=== PATIENT | male | born 1990 | race Caucasian/White ===

== ENCOUNTER 2019-10-05 08:21 | Emergency (ER) | payer BC, SELFPAY ==
--- NOTE | 2019-10-05 08:35 | ED.GENADULT ---
HPI - General Adult General Chief complaint: Upper Respiratory Infection Stated complaint: Cough/Congestion Time Seen by Provider: 10/05/19 08:58 Source: patient Mode of arrival: ambulatory Limitations: no limitations History of Present Illness HPI narrative: 29-year-old male patient presents to the [facility] with complaints of cold symptoms that started abruptly last night. Patient states he started off with a cough and then he started running a fever as high as 101 last night. Patient states he does have a headache and just overall body aches. Patient states that he has been taking Tylenol for his symptoms and his last dose was about an hour prior to arrival. Patient denies getting a flu shot this year. Patient denies being a smoker. Patient denies any chest pain but states he does have little shortness of breath when he coughs. Denies any ear pain. States his nose is a little stuffy but denies any runny nose denies a sore throat. Denies any abdominal pain, nausea, vomiting or diarrhea. Related Data Home Medications Medication Instructions Recorded Confirmed No Home Medications 10/05/19 10/05/19 Allergies Allergy/AdvReac Type Severity Reaction Status Date / Time No Known Allergies Allergy Unknown Verified 10/05/19 08:54 Review of Systems Review of Systems: Narrative: CONSTITUTIONAL: Positive fever, chills, body aches and sweats. EYES: Denies visual changes, redness, or discharge. ENT: Positive rhinorrhea, congestion, denies sore throat, or otalgia. CARDIOVASCULAR: Denies chest pain, palpitations, or edema. RESPIRATORY: Positive cough with dyspnea at times. GASTROINTESTINAL: Denies abdominal pain, nausea, vomiting, or diarrhea. GENITOURINARY: Denies dysuria or hematuria. SKIN: Denies rash or itching. MUSCULOSKELETAL: Denies back pain, joint pain, or myalgia. NEUROLOGIC: Positive headache, denies numbness, or weakness. PSYCHIATRIC: Denies anxiety or depression. [facility] Family History Family History Father Family history of elevated blood lipids Other Diabetes mellitus Family history of malignant neoplasm Hypertension Social History Social History Smoking status: Former smoker Smoking end date: 09/03/07 Alcohol intake: current Comments At the time of my signature I agree with nursing past medical history, surgical, social, and family history. There is no relevant family history pertinent to the presenting complaint. Exam Narrative: Exam Narrative: GENERAL: Well-appearing, well-nourished, and in no acute distress. HEAD: Normocephalic, atraumatic. No tenderness noted to frontal maxillary sinuses on palpation EYES: PERRLA and EOMI. ENT: Nares with erythema and edema noted bilaterally, no rhinorrhea or epistaxis. Mucous membranes moist. Posterior pharynx with no erythema, tonsillar margin, exudates or lesions present. Bilateral TMs are clear with no erythema or foreign bodies in the canal. NECK: Supple. No lymphadenopathy CHEST: Clear to auscultation. No respiratory distress. HEART: Regular rate and rhythm. No murmur heard. Normal peripheral pulses. ABDOMEN: Soft, nontender, nondistended, normal active bowel sounds. EXTREMITIES: Normal range of motion. No edema. SKIN: Warm, dry, no rash. NEURO: No focal deficits. Alert and oriented x3. Course Reevaluation(s) Reevaluation #1: Notify patient that his influenza test today is negative. Discussed with him that this is most likely a virus and will take anywhere from 5 to 2 weeks to run its course. Discussed with patient he can continue Tylenol and ibuprofen for fevers and headaches and body aches. Discussed with patient he can also take [id number] cold and flu medication to help with relief of some of his symptoms. Discussed with him I did go ahead and write him off of work tomorrow in case he is still running fevers. Patient verbalize
[2019-10-05 08:38] VITALS: BP 141/81; PULSE 103; RESP 16; TEMP 37.7; O2SAT 99
== END 2019-10-05 09:09 | disposition home or self-care (01) ==
PROVIDERS: Emergency Provider Nurse Practitioner Family; PCP Internal Medicine
DX: J06.9 Acute upper respiratory infection, unspecified (principal); R50.9 Fever, unspecified
CPT/HCPCS: 87804; 99212; G0463

== ENCOUNTER 2019-10-06 13:46 | Outpatient (CLI) | payer BC, SELFPAY ==
--- NOTE | ~2019-10-06 | XR_ITS ---
EXAMINATION: XR chest 2V DATE: 10/06/2019 14:20 INDICATION: Cough and fever. TECHNIQUE: Frontal and lateral views of the chest were obtained. COMPARISON: Chest 2 views 07/18/2012 FINDINGS: The chest demonstrates clear lungs without pneumonia, pleural effusion, or pneumothorax. Th e heart size is normal. Surgical clips in the right upper quadrant are likely from cholecystectomy. IMPRESSION: 1. No acute cardiopulmonary disease. Reviewed, dictated and finalized at location A. [facility] [employer] [employer]
[2019-10-06 14:15] LABS: Hemoglobin 15.5 g/dL (14.0-18.0); Immature Platelet Fraction Pct 2.2 % (1.0-7.0); Mean Corpuscular Hemoglobin 28.7 pg (27.0-31.0); Mean Platelet Volume 10.1 fl (8.7-11.0); Platelet Count Result 134 K/mm3 (150-420); Red Cell Distribution Width 12.9 % (11.6-14.4); White Blood Count 3.5 K/mm3 (4.8-10.8)
[2019-10-06 15:20] LABS: Band Neutrophils Percent 0 % (0-6); Basophils Percent Manual 0 % (0-1); Eosinophils Absolute Manual 0.03 K/mm3 (0.02-0.5); Eosinophils Percent Manual 1 % (1-6); Lymphocytes Absolute Manual 1.05 K/mm3 (1.1-4.5); Lymphocytes Percent Manual 30 % (18-44); Monocytes Absolute Manual 0.73 K/mm3 (0.1-0.90); Monocytes Percent Manual 21 % (3-9); Neutrophils Absolute Manual 1.68 K/mm3 (1.3-6.7); Neutrophils Percent Manual 48 % (46-73); Platelet Estimate Adequate (Adequate); Total Cells Counted 100
== END 2019-10-06 13:47 | disposition home or self-care (01) ==
PROVIDERS: PCP Internal Medicine; Visit Provider Internal Medicine
DX: R50.9 Fever, unspecified (principal); R05 Cough
CPT/HCPCS: 36415; 71046; 85025; 85055

== ENCOUNTER 2020-06-04 19:52 | Emergency (ER) | payer BC, SELFPAY ==
[2020-06-04 20:03] VITALS: BP 124/92; PULSE 77; RESP 14; TEMP 36.6; O2SAT 95
--- NOTE | 2020-06-04 20:04 | ED.WOUNDLAC ---
HPI - Wound/Laceration General Chief Complaint: Wound/Laceration Stated Complaint: cut finger Time Seen by Provider: 06/04/20 20:04 Source: patient Mode of arrival: ambulatory Limitations: no limitations History of Present Illness HPI narrative: 30-year-old man comes in today complaining of laceration on the tip of his left thumb. Patient states that he cut himself with a saw while cutting branches. It happened approximately 10 hours ago. He does not recall his last tetanus shot. Onset (ago): hour(s) (10) Extremity Location: Left: hand Place: outdoors Patient tetanus UTD: No Context: accidental Associated symptoms: pain and other ( Persistent bleeding) Related Data Home Medications Medication Instructions Recorded Confirmed No Home Medications 10/05/19 06/04/20 Allergies Allergy/AdvReac Type Severity Reaction Status Date / Time No Known Allergies Allergy Unknown Verified 10/05/19 08:54 Review of Systems Cardiovascular: Cardiovascular: Denies chest pain Respiratory: Respiratory: Denies cough and Denies dyspnea Integumentary/Breasts: Skin/Breast: Denies pruritus, Denies erythema and Denies rash Neurologic: Denies focal weakness and Denies numbness Hematologic/Lymphatic: Hematologic/Lymphatic: Denies easy bleeding and Denies easy bruising PMFSH Social History Social History Smoking status: Former smoker Smoking end date: 09/03/07 Alcohol intake: current Exam Const: General: healthy appearing, no acute distress and alert Orientation/consciousness: patient oriented x3 Limitations: no limitations HENMT: Face and sinus: normal facial exam Eyes: Conjunctivae: conjunctivae normal Pupils: Equal, round and reactive pupils present EOM: EOMs intact bilaterally Resp: Effort & Inspection: normal respiratory effort and not labored Auscultation: clear to auscultation bilaterally, no rales, no rhonchi and no wheezes Cardio: Rate: regular rate Rhythm: regular rhythm Heart sounds: no murmurs Skin: General skin exam: normal color, no jaundice and no pallor Rashes: no rashes Other: 7 cm flap laceration on the ulnar aspect of the tip of the left thumb. Neuro: General: moves all extremities, no focal motor deficits and CN's II-XI intact bilaterally Speech: normal speech Extrem: General: normal to inspection and no clubbing, cyanosis or edema Psych: Appearance: grossly normal and well kempt Mental Status: mental status grossly normal Affect: normal affect Attitude: cooperative Thought content: Yes Normal thought content present Course Vital Signs Vital signs: Vital Signs Temperature 36.6 C 06/04/20 20:03 Pulse Rate 77 06/04/20 20:03 Respiratory Rate 14 06/04/20 20:03 Blood Pressure 124/92 H 06/04/20 20:03 Pulse Oximetry 95 06/04/20 20:03 Temperature 36.6 C 06/04/20 20:03 Pulse Rate 77 06/04/20 20:03 Respiratory Rate 14 06/04/20 20:03 Blood Pressure 124/92 H 06/04/20 20:03 Pulse Oximetry 95 06/04/20 20:03 Procedures Laceration Laceration 1: Date: 06/04/20 Time: 20:45 Site: hand Side (If applicable): left Size (cm): 0.7 Description: flap Depth: simple, single layer Local Anesthetic: lidocaine 1% Amount of anesthesia used (mL): 1 Pre-repair: wound explored and irrigated extensively ====== Skin Level ====== Skin layer closed with: nylon Size (cm): 5-0 Number of sutures: 1 Technique: simple, interrupted ====== Subcutaneous Layer ====== ====== Muscle Layer ====== ====== Tendon Layer ====== Discharge Plan Discharge Clinical Impression: Laceration Patient Disposition: Home, Self-Care Condition: Stable Instructions: Care For Your Stitches (ED) Additional Instructions: 1 suture to come out in 8-10 days. If you develop redness, swelling, red or green drainage, or ne
[2020-06-04] MEDS: LIDOCAINE HCL 1% LOCAL INJ 20 ML VIAL 10 ML INFILTRATE (20:52)
[2020-06-04] MEDS: TETANUS,DIPHTHERIA,AC PERTUSSIS ADULT 0.5 ML (ADACEL) IM (21:06)
[2020-06-04] MEDS: NEOMYCIN/POLYMYXIN/BACITRACIN OINTMENT PACKET 1 PACKET (21:10)
[2020-06-04 21:16] VITALS: RESP 15; O2SAT 100
== END 2020-06-04 21:15 | disposition home or self-care (01) ==
PROVIDERS: Emergency Provider Emergency Medicine; PCP Internal Medicine
DX: S61.012A Laceration without foreign body of left thumb without damage to nail, initial encounter (principal); W27.8XXA Contact with other nonpowered hand tool, initial encounter
CPT/HCPCS: 12001; 90471; 90715; 99282

== ENCOUNTER 2020-08-16 11:22 | Outpatient (CLI) | payer BC, SELFPAY ==
[2020-08-16 12:25] LABS: SARS-CoV-2 Ag Negative (Negative)
== END 2020-08-16 11:23 | disposition home or self-care (01) ==
LOC: CHSLAB 11:23
PROVIDERS: PCP Internal Medicine; Visit Provider Internal Medicine
DX: Z20.828 Contact with and (suspected) exposure to other viral communicable diseases (principal)
CPT/HCPCS: 87426

== ENCOUNTER 2020-08-20 15:23 | Outpatient (CLI) | payer BC, SELFPAY ==
[2020-08-20 16:33] LABS: SARS-CoV-2 Ag Negative (Negative)
== END 2020-08-20 15:24 | disposition home or self-care (01) ==
LOC: CHSLAB 15:26
PROVIDERS: PCP Internal Medicine; Visit Provider Internal Medicine
DX: Z20.828 Contact with and (suspected) exposure to other viral communicable diseases (principal)
CPT/HCPCS: 87426

== ENCOUNTER 2023-01-04 08:38 | Emergency (ER) | payer OTHER, BC, SELFPAY ==
--- NOTE | ~2023-01-04 | CT_ITS ---
EXAMINATION: CT brain wo con DATE: 01/04/2023 09:20 INDICATION: Head injury. Headache. TECHNIQUE: Computed tomography (CT) of the head was performed without intravenous contrast. The mA wa s adjusted according to patient size. Iterative reconstruction technique was employed. The dose-lengt h product was 681.00 mGy-cm. COMPARISON: Head CT 07/14/2011 FINDINGS: There is no intracranial hemorrhage, acute infarction, or abnormal intracranial mass lesion . The ventricles are normal in size. The orbits are normal. There is a mucous retention cyst in left maxillary sinus. The mastoid air cells are normal. IMPRESSION: 1. Normal brain. Reviewed, dictated and finalized at location A. IMPRESSION: 1. Normal brain.
--- NOTE | ~2023-01-04 | CT_ITS ---
EXAMINATION: CT cervical spine wo con DATE: 01/04/2023 09:21 INDICATION: Head injury. Neck pain. TECHNIQUE: Computed tomography (CT) of the cervical spine was performed without intravenous contrast. Automated exposure control and iterative reconstruction technique were employed. The dose-length pro duct was 681.00 mGy-cm. COMPARISON: Cervical spine MRI 12/25/2015 FINDINGS: There is 4 degrees dextrocurvature of cervical spine. Vertebral body heights and interverte bral disc heights are normal. The following disc levels are specifically discussed: C2-C3: There is mild bilateral uncovertebral joint osteoarthritis. There is mild left facet joint ost eoarthritis. There is no neural foraminal stenosis. There is no central canal stenosis. C3-C4: There is mild bilateral uncovertebral joint osteoarthritis. There is no facet joint osteoarthr itis. There is no neural foraminal stenosis. There is no central canal stenosis. C4-C5: There is mild bilateral uncovertebral joint osteoarthritis. There is no facet joint osteoarthr itis. There is no neural foraminal stenosis. There is no central canal stenosis. C5-C6: There is no uncovertebral joint osteoarthritis. There is no facet joint osteoarthritis. There is no neural foraminal stenosis. There is no central canal stenosis. C6-C7: There is no uncovertebral joint osteoarthritis. There is no facet joint osteoarthritis. There is no neural foraminal stenosis. There is no central canal stenosis. C7-T1: There is no uncovertebral joint osteoarthritis. There is mild bilateral facet joint osteoarthr itis. There is no neural foraminal stenosis. There is no central canal stenosis. IMPRESSION: 1. No fracture. Reviewed, dictated and finalized at location A. IMPRESSION: 1. No fracture.
[2023-01-04 08:38] VITALS: BP 141/100; PULSE 74; RESP 16; TEMP 36.7; O2SAT 96
[2023-01-04] MEDS: KETOROLAC (*BKC) 60 MG/2 ML VIAL IM (09:19)
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
[2023-01-04 10:18] VITALS: BP 143/99; PULSE 66; RESP 16; TEMP 36.7; O2SAT 100
== END 2023-01-04 10:22 | disposition home or self-care (01) ==
PROVIDERS: Emergency Provider Emergency Medicine; PCP Internal Medicine
DX: S06.0X0A Concussion without loss of consciousness, initial encounter (principal); S16.1XXA Strain of muscle, fascia and tendon at neck level, initial encounter; Z87.891 Personal history of nicotine dependence; V87.7XXA Person injured in collision between other specified motor vehicles (traffic), initial encounter
CPT/HCPCS: 70450; 72125; 96372; 99284; J1885

== ENCOUNTER 2023-01-12 11:44 | Outpatient (CLI) | payer OTHER, SELFPAY ==
--- NOTE | ~2023-01-12 | XR_ITS ---
XR lumbar spine 2-3V 01/12/2023 12:10 Indication: Low back pain Procedure: 3 views lumbar spine Comparison: No prior studies for comparison. Findings: There is mild levocurvature of the lumbar spine. Vertebral body heights are maintained. The re is mild wedge-shaped appearance to L1, likely developmental or chronic. No acute fracture, subluxa tion or dislocation. No evidence for spondylolisthesis. Pedicles intact. Sacral foramen are symmetric . Impression: 1: No acute abnormality of the lumbar spine. Reviewed, dictated and finalized at location B. Impression: 1: No acute abnormality of the lumbar spine.
== END 2023-01-12 11:45 | disposition home or self-care (01) ==
LOC: CHSIMG 11:46
PROVIDERS: PCP Internal Medicine; Visit Provider Nurse Practitioner Family
DX: M54.50 Low back pain, unspecified (principal)
CPT/HCPCS: 72100

== ENCOUNTER 2023-01-31 08:01 | Outpatient (RCR) | payer BC, SELFPAY ==
--- NOTE | 2023-01-31 08:16 | OPREHPOC ---
Outpatient Therapy Plan of Care This is a Multidisciplinary Plan of Care that may contain components documented by all disciplines (PT, OT, and ST.) PT Problem 1 PT Problem #1 Knowledge Deficit PT Goal 1 Goal Patient to demonstrate independence with HEP Target Visit 12 PT Problem 2 PT Problem #2 Pain PT Goal 1 Goal 1. Patient to report highest pain at 2/10 2. Patient to report ability to sleep with no disturbance due to neck pain Target Visit 12 PT Problem 3 PT Problem #3 Impaired Functional Mobil PT Goal 1 Goal 1. Patient to report ability to sit at work for >1 hour with no increase in pain 2. Patient to demonstrate ability to reach to the ground with lumbar flexion to improve ability to lift for house hold tasks Target Visit 12 PT Problem 4 PT Problem #4 Impaired Strength PT Goal 1 Goal 1. Patient to demonstrate 5/5 strength of B LE to improve ability to complete house hold tasks at PLOF. Target Visit 12
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
--- NOTE | 2023-04-03 07:12 | OPREHPOC ---
Outpatient Therapy Plan of Care This is a Multidisciplinary Plan of Care that may contain components documented by all disciplines (PT, OT, and ST.) PT Problem 1 PT Problem #1 Knowledge Deficit PT Goal 1 Goal Patient to demonstrate independence with HEP Target Visit 12 Comment continue PT Problem 2 PT Problem #2 Pain PT Goal 1 Goal 1. Patient to report highest pain at 2/10 2. Patient to report ability to sleep with no disturbance due to neck pain Target Visit 12 Comment continue PT Problem 3 PT Problem #3 Impaired Functional Mobil PT Goal 1 Goal 1. Patient to report ability to sit at work for >1 hour with no increase in pain 2. Patient to demonstrate ability to reach to the ground with lumbar flexion to improve ability to lift for house hold tasks Target Visit 12 Comment continue PT Problem 4 PT Problem #4 Impaired Strength PT Goal 1 Goal 1. Patient to demonstrate 5/5 strength of B LE to improve ability to complete house hold tasks at PLOF. Target Visit 12 Progress Met Comment MET
--- NOTE | 2023-04-03 07:12 | PTOPPROGNS ---
Assessment and note entered by Nicole Gomes DPT Evaluation Information Assessment Status Progress Diagnosis neck pain, back pain Onset 01/04/23 Subjective Information Patient reports back pain is improved since starting PT. He reports cervical pain is his biggest complaint now but also reports that is improved. He reports he can sleep with less disturbance. He reports pain with sitting at his desk. Assessment PT Clinical Summary Patient has been seen for 10 visits of skilled PT with good progress towards goals. Patient demonstrates improved cervical ROM, decrease back pain and met his goal for LE strength. Patient reports improved ability to sleep at night but continues to have cervica pain with sitting for long periods of time. Patient would benefit from continued skilled PT to address remaining impairments and return to PLOF. Plan of Care Interventions Electrical Stimulation,Gait Training,Hot Pack/Cold Pack,Intermittent Compression,Manual Therapy, Mechanical Traction,Neuro Re-education,Patient/ Caregiver Educati,Therapeutic Activities, Therapeutic Exercise,Self-Care/Home Management PT Services Indicated Yes Treatment Frequency and continue with current POC Duration These treatments will address the objective and functional deficits as defined above. The patient will be advanced safely and appropriately in order for the patient to progress towards his/her prior level of function. Additional exercises will be introduced and as well as a comprehensive home exercise program upon discharge, if needed, ?to ensure carryover of functional gains achieved in the clinic. This treatment plan has been reviewed and agreement upon by the patient.
--- NOTE | 2023-05-04 09:55 | PCPTNOTE ---
Patient discharged after 10 visits due to not attending follow up appointments
== END 2023-04-02 23:59 | disposition home or self-care (01) ==
LOC: CHSPT 08:01
PROVIDERS: PCP Internal Medicine; Visit Provider Nurse Practitioner Family
DX: M54.2 Cervicalgia (principal); M54.50 Low back pain, unspecified
CPT/HCPCS: 97014; 97110; 97140; 97150; 97161; G0283

== ENCOUNTER 2023-05-16 20:13 | Emergency (ER) | payer BC, SELFPAY ==
--- NOTE | 2023-05-16 20:28 | ED.LOWEXIN ---
HPI - Extremity Injury (Lower) General Chief Complaint: Extremity Injury, Lower Stated Complaint: R arellano Injury Time Seen by Provider: 05/16/23 20:15 Source: patient Mode of arrival: ambulatory Limitations: no limitations History of Present Illness HPI Narrative: 32-year-old male with a history of depression was hit by a softball on the right lower arellano. No other injuries noted. The patient is ambulatory. -- Bruising of the right lower leg. complaint: leg injury Onset (ago): hour(s) ( 1 hour ago) Injury: Left: hip, pelvis, thigh, knee, ankle, foot and toes Type of Injury: blunt Place: street/outdoors Severity: mild Exacerbating factors: nothing Context: direct blow Other symptoms: none Related Data Home Medications Medication Instructions Recorded Confirmed escitalopram oxalate 10 mg tablet 10 mg PO DAILY 01/04/23 05/16/23 hydroxyzine HCl 25 mg tablet 25 mg PO HS 01/04/23 05/16/23 sertraline 100 mg tablet 100 mg PO DAILY 01/04/23 05/16/23 Allergies Allergy/AdvReac Type Severity Reaction Status Date / Time No Known Allergies Allergy Unknown Verified 10/05/19 08:54 Review of Systems Review of Systems: All systems reviewed & are unremarkable except as noted in HPI and below PMFSH Past Medical History Medical History (Updated 05/16/23 @ 20:50 by Kingsley Fuentes MD) Depression Patient denies medical problems Family History Family History Father Family history of elevated blood lipids Other Diabetes mellitus Family history of malignant neoplasm Hypertension Social History Social History Smoking status: Former smoker Smoking end date: 09/03/07 Alcohol intake: current Exam Const: General: healthy appearing Nutritional Appearance: well nourished Orientation/consciousness: patient oriented x3 Limitations: no limitations HENMT: Head: normal to inspection Ears: external ears normal Face/Nose/Sinus: Normal external nose present Face and sinus: normal facial exam Mouth: Yes Normal oral and palatal mucosa present Throat: posterior oropharynx normal Eyes: Conjunctivae: conjunctivae normal Pupils: Equal, round and reactive pupils present EOM: EOMs intact bilaterally Direct Ophthalmoscopy: no photophobia Neck: Neck: normal visual inspection Chest: Chest palpation & inspection: normal inspection of the chest Resp: Effort & Inspection: normal respiratory effort Auscultation: clear to auscultation bilaterally Cardio: Rate: regular rate Rhythm: regular rhythm Heart sounds: Murmur heart sound present GI: GI Palp: Yes Soft to palpation Auscultation: normal bowel sounds : General: Yes no CVA tenderness Back/Spine/Pelvis: Back: no CVA tenderness Skin: General skin exam: normal color Rashes: no rashes Wounds: no wounds Neuro: General: patient oriented x3, moves all extremities, no meningeal signs, no focal motor deficits and CN's II-XI intact bilaterally Cranial nerves: Yes Nystagmus not present Speech: normal speech Gait exam (Neuro): Normal gait present Extrem: Other: 5 cm soft tissue swelling over the right lower arellano. No bony injury. Psych: Mental Status: mental status grossly normal Affect: normal affect Attitude: cooperative Course Course Emergency Course: right arellano pain from softball injury-- patient has soft tissue swelling without any bony tenderness. Vital Signs Vital signs: Vital Signs Temperature 36.4 C 05/16/23 20:35 Temperature 36.4 C 05/16/23 20:35 Pulse Rate 75 05/16/23 20:46 Respiratory Rate 18 05/16/23 20:46 Blood Pressure 122/87 05/16/23 20:46 Pulse Oximetry 98 05/16/23 20:46 MDM - Extremity Injury (Lower) MDM Narrative Medical decision making narrative: Arellano pain Differential Diagnosis Differential diagnosis: Likely ankle fracture and other ( tibial fracture) Discharge Plan Di
[2023-05-16 20:35] VITALS: TEMP 36.4
[2023-05-16 20:46] VITALS: BP 122/87; PULSE 75; RESP 18; O2SAT 98
[2023-05-16 20:56] VITALS: BP 122/87; PULSE 75; RESP 18; TEMP 36.4; O2SAT 98
== END 2023-05-16 20:57 | disposition home or self-care (01) ==
PROVIDERS: Emergency Provider Internal Medicine Critical Care Medicine; PCP Internal Medicine
DX: M79.661 Pain in right lower leg (principal); Z87.891 Personal history of nicotine dependence; Z79.899 Other long term (current) drug therapy; W21.07XA Struck by softball, initial encounter; Y92.410 Unspecified street and highway as the place of occurrence of the external cause
CPT/HCPCS: 99281

== ENCOUNTER 2023-10-09 09:08 | Emergency (ER) | payer BC, SELFPAY ==
--- NOTE | ~2023-10-09 | XR_ITS ---
EXAMINATION: XR chest 1V portable INDICATION: Chest pain TECHNIQUE: Portable AP chest at 0923 hours COMPARISON: 10/06/2019 FINDINGS: The lungs are free of acute opacities. No pleural effusion or pneumothorax. The cardiomedia stinal silhouette is normal. IMPRESSION: 1. No acute cardiopulmonary abnormality. Reviewed, dictated and finalized at location L. D BANK TECHNICIAN
--- NOTE | 2023-10-09 09:10 | ECG_ITS ---
Measurements Intervals [place] Rate: 85 P: 35 MD: 140 QRS: 50 QRSD: 110 T: -18 QT: 346 QTc: 412 Interpretive Statements SINUS RHYTHM NONSPECIFIC ST AND T-WAVE ABNORMALITY NO PREVIOUS ECG AVAILABLE FOR COMPARISON Electronically Signed On 10-09-2023 13:48:38 [employer] FILTERING SUPERVISOR by Diane Roth M.D.
[2023-10-09 09:14] VITALS: BP 141/88; PULSE 92; RESP 20; TEMP 36.6; O2SAT 95
[2023-10-09 09:23] VITALS: O2SAT 95
--- NOTE | 2023-10-09 09:25 | ED.URI ---
HPI - URI/Sore Throat General Chief Complaint: Shortness of Breath/Dyspnea Stated Complaint: URI/congestion Time Seen by Provider: 10/09/23 09:10 Source: patient Mode of arrival: ambulatory Limitations: no limitations History of Present Illness HPI Narrative: patient is a 33-year-old male with 1 week history of cough and congestion and fever. He tested positive for influenza B last week. He was given antibiotic as the son had strep throat. He also was on steroids. He is here with feeling worse again after feeling somewhat better over the weekend. Some associated chest pain with breathing. Shortness of breath. He was on a Medrol Dosepak and azithromycin. MD elicited complaint: fever, cough, sore throat and nasal congestion Onset (ago): week(s) (1) Consistency: constant Severity: moderate Pain scale (0-10): 4 Description of mucous: clear Able to tolerate fluids by mouth: Yes Exacerbating factors: nothing Relieving factors: nothing Context: sick contacts Associated symptoms: fever, chills, myalgias, headache, sore throat, cough, chest pain and shortness of breath Treatments prior to arrival: acetaminophen, ibuprofen and antibiotics Related Data Home Medications Medication Instructions Recorded Confirmed azithromycin 250 mg tablet 250 mg PO DAILY 10/09/23 10/09/23 methylprednisolone 4 mg tablets in 4 mg PO DAILY 10/09/23 10/09/23 a dose pack Allergies Allergy/AdvReac Type Severity Reaction Status Date / Time No Known Allergies Allergy Unknown Verified 10/09/23 09:13 Review of Systems Review of Systems: All systems reviewed & are unremarkable except as noted in HPI and below Constitutional: Constitutional: Reports no additional constitutional complaints Eyes: Eyes: Reports no additional eye complaints ENT: Reports system reviewed and no additional complaints, except as documented Cardiovascular: Cardiovascular: Reports no additional cardiovascular complaints Respiratory: Respiratory: Reports no additional respiratory complaints Gastrointestinal: Gastrointestinal: Reports no additional gastrointestinal complaints Genitourinary: Genitourinary: Reports no additional male genitourinary complaints Musculoskeletal: Musculoskeletal: Reports no additional musculoskeletal complaints Integumentary/Breasts: Skin/Breast: Reports system reviewed and no additional complaints, except as docu Neurologic: Reports system reviewed and no additional complaints, except as documented Psychiatric: Psychiatric: Reports no additional psychiatric complaints Endocrine: Endocrine: Reports no additional endocrine complaints Hematologic/Lymphatic: Hematologic/Lymphatic: Reports no additional hematologic/lymphatic complaints Allergic/Immunologic: Allergic/Immunologic: Reports no additional allergic/immunologic complaints PMFSH Past Medical History Medical History Depression Patient denies medical problems Family History Family History Father Family history of elevated blood lipids Other Diabetes mellitus Family history of malignant neoplasm Hypertension Social History Social History Smoking status: Former smoker Smoking end date: 09/03/07 Alcohol intake: current Exam Const: General: ill appearing Nutritional Appearance: well nourished Orientation/consciousness: patient oriented x3 HENMT: Head: normal to inspection Ears: external ears normal Face/Nose/Sinus: Normal external nose present Eyes: Conjunctivae: conjunctivae normal Pupils: Equal, round and reactive pupils present EOM: EOMs intact bilaterally Neck: Neck: normal visual inspection Chest: Chest palpation & inspection: normal inspection of the chest Resp: Effort & Inspection: normal respiratory effort and not labored Auscultation: not clear to auscultation bilaterally, no
[2023-10-09 09:28] LABS: Basophils Absolute Auto 0.01 K/mm3 (0.00-0.10); Basophils Percent Auto 0.2 % (0.0-1.0); Eosinophils Absolute Auto 0.04 K/mm3 (0.02-0.50); Eosinophils Percent Auto 0.8 % (1.0-6.0); Hematocrit 44.7 % (40.0-54.0); Hemoglobin 14.9 g/dL (14.0-18.0); Immature Granulocyte Absolute 0.04 K/mm3 (0.00-0.00); Immature Granulocyte Percent A 0.8 % (0.0-0.0); Immature Platelet Fraction Pct 3.1 % (1.0-7.0); Lymphocytes Absolute Auto 1.27 K/mm3 (1.10-4.50); Lymphocytes Percent Auto 25.7 % (18.0-42.0); Mean Corpuscular HGB Conc 33.3 g/dL (32.0-36.0); Mean Corpuscular Hemoglobin 28.1 pg (27.0-31.0); Mean Corpuscular Volume 84.3 fL (78.0-102.0); Mean Platelet Volume 9.7 fl (8.7-11.0); Monocytes Absolute Auto 0.45 K/mm3 (0.10-0.90); Monocytes Percent Auto 9.1 % (2.0-11.0); Neutrophils Absolute Auto 3.1 K/mm3 (1.7-7.2); Neutrophils Percent Auto 63.4 % (50.0-70.0); Platelet Count Result 110 K/mm3 (150-420)
[2023-10-09] MEDS: methylPREDNISolone SOD SUCC 125 MG VIAL IM (09:28)
[2023-10-09 09:42] VITALS: PULSE 88; RESP 18; O2SAT 98
[2023-10-09] MEDS: IPRATROPIUM 0.5 MG/ALBUTEROL SULFATE 2.5 MG AMPUL.NEB 3 ML INHALATION (09:42)
[2023-10-09 09:44] LABS: Alanine Aminotransferase 43 U/L (16-63); Albumin Level 3.7 g/dL (3.4-5.0); Alkaline Phosphatase 72 U/L (46-116); Anion Gap 9 mmol/L (8-16); Aspartate Amino Transferase 30 U/L (15-37); Bilirubin,Total 0.8 mg/dL (0.00-1.00); Blood Urea Nitrogen 23 mg/dL (7-18); Calcium 8.6 mg/dL (8.5-10.1); Carbon Dioxide 29 mmol/L (21-32); Chloride 100 mmol/L (98-108); Estimated CRCL calculation 86 ml/min; Estimated Glomerular Filt Rate > 60; Glucose 93 mg/dL (70-99); Osmolality Calculated 289 mOsm/kg (285-295); Potassium 3.9 mmol/L (3.5-5.1); Sodium 138 mmol/L (136-145); Total Protein 7.2 g/dL (6.4-8.2); Troponin I 5.6 ng/L (0.00-60.4)
[2023-10-09 09:46] LABS: Strep Group A RT-PCR NOT DETECTED (Negative)
[2023-10-09 09:52] LABS: SARS-CoV-2 RNA PCR Negative (Negative)
[2023-10-09 10:01] LABS: Influenza A QL RT-PCR Negative (Negative); Influenza B QL RT-PCR Positive (Negative); RSV RNA, RT-PCR Negative (Negative)
[2023-10-09] MEDS: SODIUM CHLORIDE 0.9% IV 1,000 ML 999 ML IV CONT (10:42)
[2023-10-09 10:51] VITALS: BP 139/87; PULSE 86; RESP 18; TEMP 36.6; O2SAT 95
[2023-10-09 12:04] VITALS: BP 135/80; PULSE 71; RESP 16; O2SAT 97
== END 2023-10-09 12:10 | disposition home or self-care (01) ==
PROVIDERS: Emergency Provider Emergency Medicine; PCP Internal Medicine
DX: J10.1 Influenza due to other identified influenza virus with other respiratory manifestations (principal); N17.9 Acute kidney failure, unspecified; E86.0 Dehydration; Z79.899 Other long term (current) drug therapy; Z87.891 Personal history of nicotine dependence; Z20.822 Contact with and (suspected) exposure to COVID-19
CPT/HCPCS: 36415; 71045; 80053; 84484; 85025; 85055; 87637; 87651; 93005; 94640; 96360; 96372; 99284; J2930; J7030

== ENCOUNTER 2024-06-02 16:49 | Outpatient (CLI) | payer BC, SELFPAY ==
[2024-06-02 17:20] LABS: Hematocrit 45.9 % (40.0-54.0); Hemoglobin 15.2 g/dL (14.0-18.0); Mean Corpuscular HGB Conc 33.1 g/dL (32-36); Mean Corpuscular Hemoglobin 29.9 pg (27.0-31.0); Mean Corpuscular Volume 90.4 fL (78.0-102.0); Mean Platelet Volume 10.6 fl (8.7-11.0); Platelet Count Result 156 K/mm3 (150-420); Red Blood Count 5.08 M/mm3 (4.70-6.10); Red Cell Distribution Width 12.7 % (11.6-14.4); White Blood Count 7.3 K/mm3 (4.8-10.8)
[2024-06-02 18:11] LABS: Anion Gap 6 mmol/L (4-12); Blood Urea Nitrogen 19 mg/dL (7-18); Calcium 9.5 mg/dL (8.5-10.1); Carbon Dioxide 33 mmol/L (21-32); Chloride 102 mmol/L (98-108); Estimated Glomerular Filt Rate 56; Glucose 90 mg/dL (70-99); Osmolality Calculated 294 mOsm/kg (285-295); Potassium 4.6 mmol/L (3.5-5.1); Prostate Specific Antigen 0.5 ng/mL (< OR = 4.0); Sodium 141 mmol/L (136-145)
== END 2024-06-02 16:50 | disposition home or self-care (01) ==
LOC: CHSLAB 16:51
PROVIDERS: PCP Internal Medicine; Visit Provider Internal Medicine
DX: R30.0 Dysuria (principal)
CPT/HCPCS: 36415; 80048; 84153; 85027

== ENCOUNTER 2024-06-05 14:31 | Outpatient (CLI) | payer BC, SELFPAY ==
--- NOTE | ~2024-06-05 | US_ITS ---
EXAMINATION: US retroperitoneal comp DATE: 06/05/2024 14:53 INDICATION: Hematuria. Prostatitis. TECHNIQUE: Multiple ultrasound grayscale images of the kidneys were obtained. COMPARISON: None. FINDINGS: The right kidney measures 10.3 x 5.0 x 3.7 cm. The left kidney measures 11.2 x 4.6 x 4.5 cm. The kidn eys demonstrate normal echogenicity. There is no hydronephrosis in either kidney. No stones identifi ed. The bladder is normal. IMPRESSION: 1. Normal kidneys without hydronephrosis. Reviewed, dictated and finalized at location A.
== END 2024-06-05 14:32 | disposition home or self-care (01) ==
LOC: CHSIMG 14:33
PROVIDERS: PCP Internal Medicine; Visit Provider Internal Medicine
DX: R31.9 Hematuria, unspecified (principal); N41.9 Inflammatory disease of prostate, unspecified
CPT/HCPCS: 76770